=== PATIENT | male | born 1975 | race African-American/Black ===

== ENCOUNTER 2020-10-07 18:02 | Emergency (ER) | payer OTHER ==
[2020-10-07 18:32] LABS: #Basophils 0.1 thou/uL (0.0-0.2); #Eosinphils 0.1 thou/uL (0.0-0.7); #Lymphocytes 1.9 thou/uL (1.20-3.40); #Monocytes 0.5 thou/uL (0.11-0.59); #Neutrophils 6.1 thou/uL (1.40-6.50); %Basophils 0.6 % (0.0-1.0); %Eosinophils 0.6 % (0.0-10.0); %Lymphocytes 21.9 % (21.0-51.0); %Monocytes 5.3 % (0.0-10.0); %Neutrophils 71.7 % (42.0-75.0); Hemoglobin 12.5 g/dL (14.0-18.0); Mean Corpuscular HGB CONC 31.7 g/dL (32.0-36.0); Mean Corpuscular Hemoglobin 33.7 pg (27.0-31.0); Mean Platelet Volume 5.5 fL (7.4-10.4); Platelet Count 213 thou/uL (130-400); RBC Distribution Width 11.8 % (11.5-14.5); White Blood Cell (WBC) Count 8.5 thou/uL (4.8-10.8)
[2020-10-07 18:33] LABS: MDiff Complete? YES; Manual Diff?? NO
[2020-10-07 18:39] LABS: ALT (SGPT) 18 U/L (8-55); AST (SGOT) 29 U/L (5-34); Albumin 4.4 g/dL (3.5-5.0); Alkaline Phosphatase 62 U/L (40-110); Anion Gap 20 mmol/L (10-20); BUN (Urea Nitrogen) 65 mg/dL (8.9-20.6); Bilirubin, Total 0.5 mg/dL (0.2-1.2); Calc. Creatinine Clearance 0 mL/min (70-130); Carbon Dioxide 17 mmol/L (22-29); Chloride 110 mmol/L (98-107); Globulin 3.3 g/dL (2.4-3.5); Glucose 91 mg/dL (70-105); Potassium 5.4 mmol/L (3.5-5.1); Protein, Total 7.7 g/dL (6.0-8.3); Sodium 142 mmol/L (136-145)
[2020-10-07 18:42] LABS: Calcium 9.6 mg/dL (7.8-10.44)
== END 2020-10-07 19:55 | disposition short-term general hospital (02) ==
LOC: BURERS 18:02
DX: E87.5 Hyperkalemia (principal); R00.0 Tachycardia, unspecified; F17.210 Nicotine dependence, cigarettes, uncomplicated
CPT/HCPCS: 36415; 71046; 80053; 85025; 87040; 93005

== ENCOUNTER 2020-10-13 10:08 | Emergency (ER) | payer OTHER ==
[2020-10-13] MEDS ORDERED: Ondansetron PF 4 MG/2 ML Vial ONE (10:43)
[2020-10-13] MEDS ORDERED: Famotidine In NaCl 20 mg/50 ml Premix Bag ONE (10:43)
== END 2020-10-13 12:41 | disposition home or self-care (01) ==
LOC: BURERS 10:08
DX: R11.2 Nausea with vomiting, unspecified (principal); F17.200 Nicotine dependence, unspecified, uncomplicated; Z99.2 Dependence on renal dialysis
CPT/HCPCS: 71045; 96374; 96375; J2405

== ENCOUNTER 2020-10-26 17:28 | Emergency (ER) | payer OTHER ==
[2020-10-26] MEDS ORDERED: Ibuprofen 800 MG TAB ONE (18:10)
== END 2020-10-26 18:42 | disposition home or self-care (01) ==
LOC: BURERS 17:28
DX: S63.92XA Sprain of unspecified part of left wrist and hand, initial encounter (principal); I12.0 Hypertensive chronic kidney disease with stage 5 chronic kidney disease or end stage renal disease; N18.6 End stage renal disease; X50.0XXA Overexertion from strenuous movement or load, initial encounter